=== PATIENT | male | born 1940 | race Caucasian/White ===

== ENCOUNTER → 2016-12-30 | Outpatient (CLI) | payer MEDICARE, OTHER ==
[2016-12-30 10:41] LABS: Basophils % (A) 1 %; CH 29.7; CHCM 32.5; Eosinophils # (A) 0.1 k/uL (0-0.7); Eosinophils % (A) 2 %; HCT 51.2 % (39.0-53.0); HDW 2.24; HGB 16.2 gm/dL (13.0-17.5); Luc # (Auto) 0.13; Luc % (Auto) 2; Lymphocytes # (A) 1.2 k/uL (1.0-4.8); Lymphocytes % (A) 22 %; MCHC 31.6 g/dL (31.0-37.0); MCV 91.8 fL (80.0-100.0); Mean Platelet Volume 8.1; Monocytes # (A) 0.4 k/uL (0-1.0); Monocytes % (A) 7 %; Neutrophils # (A) 3.8 k/uL (1.3-7.7); Neutrophils % (A) 66 %; RBC 5.58 m/uL (4.30-5.90); RDW 13.2 % (11.5-15.5); WBC 5.8 k/uL (3.8-10.6); WBC (Perox) 5.57
[2016-12-30 11:04] LABS: ALT 33 U/L (21-72); AST 29 U/L (17-59); Alkaline Phosphatase 96 U/L (38-126); Anion Gap 12 mmol/L; Blood Urea Nitrogen 18 mg/dL (9-20); Calcium 9.7 mg/dL (8.4-10.2); Carbon Dioxide 28 mmol/L (22-30); Chloride 104 mmol/L (98-107); Cholesterol 261 mg/dL (<200); Glucose 104 mg/dL (74-99); HDL Cholesterol 57 mg/dL (40-60); Non-African American GFR(MDRD) 50 (>60 ml/min/1.73 sqM); Potassium 4.6 mmol/L (3.5-5.1); Sodium 144 mmol/L (137-145); Total Bilirubin 0.8 mg/dL (0.2-1.3); Total Protein 7.7 g/dL (6.3-8.2); Triglycerides 111 mg/dL (<150)
[2016-12-30 12:25] LABS: Hemoglobin A1C 5.5 % (4.2-6.1)
== END | disposition home or self-care (01) ==
LOC: EEVIPCON 09:45 → LABWHC1 09:45
PROVIDERS: ATTEND Nurse Practitioner Psychiatric/Mental Health
DX: F20.9 Schizophrenia, unspecified (principal)
CPT/HCPCS: 36415; 80053; 80061; 83036; 84439; 84443; 85025

== ENCOUNTER 2019-08-05 17:29 | Inpatient (IN) | payer MEDICARE, OTHER ==
[2019-08-05] MEDS ORDERED: methylPREDNISolone SOD SUCCI 125 MG/2 ML VIAL IV STA (18:12)
[2019-08-05] MEDS ORDERED: SODIUM CHLORIDE 0.9% 1,000 ML IV STA (18:12)
[2019-08-05] MEDS ORDERED: ALBUTEROL NEBULIZED 2.5 MG/3 ML INHALATION STA (18:12)
--- NOTE | 2019-08-05 18:32 | ED ---
General Adult HPI - General Chief complaint: Shortness of Breath Stated complaint: low SpO2 Time Seen by Provider: 08/05/19 17:57 Source: patient, RN notes reviewed Mode of arrival: EMS Limitations: no limitations - History of Present Illness Initial comments: Chief complaint history of present illness this is an 79-year-old male who reportedly was discharged from her disc hospitalist morning. Sent home to a adult foster care type home who felt he was still too sick to keep at the home. Ambulance was called he is brought emergency room. Pulse ox 92% on room air. the history gained from the notes from [facility] , the patient has COPD with schizophrenia, reportedly not eating or drinking for 3 days. The patient is currently denying pain or being short of breath though he does appear to be short of breath. He does emergency room tachycardic rate 126. Respiratory rate 20 pulse ox 90% room air. The patient had nasal O2 started. Also updra ordered labs and EKG. A call was sent out to the guardians phone number, his cell phone, and a message left. The guardians name is Kevin Kendrick Medical records will be requested from [facility]. - Related Data Allergies Allergy/AdvReac Type Severity Reaction Status Date / Time Penicillins Allergy Unknown Verified 08/05/19 19:14 Tetanus Vaccines and Toxoid Allergy Unknown Verified 08/05/19 19:14 Review of Systems ROS Statement: Those systems with pertinent positive or pertinent negative responses have been documented in the HPI. Review of systems; patient denies shortness of breath or any pain. Past history significant for COPD and schizophrenia. Currently no information is available on the patient. He was discharged from [facility] this morning. Notes from [facility] over requested. ROS Other: All systems not noted in ROS Statement are negative. Past Medical History Past Medical History: Heart Failure, COPD, Dementia Additional Past Medical History / Comment(s): schizophrenia History of Any Multi-Drug Resistant Organisms: Unobtainable Past Surgical History: Unable to Obtain Smoking Status: Unknown if ever smoked Past Alcohol Use History: Unable to Obtain Past Drug Use History: Unable to Obtain General Exam - General Exam Comments Initial Comments: General: The patient is awake and appears to be short of breath though he denies it. Vital signs temperature 98.2 pulse 126 respiratory rate 20 pulse ox 92% room air blood pressure 150/90 Eye: Pupils are equal, round and reactive to light, extra-ocular movements are intact; there is normal conjunctiva bilaterally. No signs of icterus. Ears, nose, mouth and throat: Dry mucous membranes Neck: The neck is supple, denying neck pain Cardiovascular: Tachycardic heart rate, no murmur appreciated this time Respiratory: Appears short of breath, dried phlegm in his throat, crepitant rales right base, patient receiving Ventimask at this time and actually stating he does not feel short of breath. Gastrointestinal: Denying abdominal pain denying nausea vomiting or diarrhea Back: There is no tenderness to palpation in the midline. There is no obvious deformity. No rashes noted. Denying back pain Musculoskeletal: Normal ROM, no tenderness, There is no pedal edema. There is no calf tenderness or swelling. Sensation intact. Pulses equal bilaterally 2+. Neurological: No gross neuro deficits. Patient moving upper and lower extremities. Skin: Skin is warm and dry and no rashes or lesions are noted. Psychiatric: History of schizophrenia. Limitations: no limitations Course Vital Signs 08/05/19 08/05/19 08/05/19 17:36 18:16 18:25 Temperature 98.2 F Pulse Rate 126 H 132 H Respiratory 20 18 Rate Blood Pressure 150/90 O2 Sat by Pulse 92 L Oximetry 08/05/19 08/05/19 08/05/19 18:47 19:38 21:09 Temperature 97.6 F Pulse Rate 132 H 134 H 98 Respiratory 37 H 41 H Rate Blood Pressure 112/89 108/75 O2 Sat by Pulse 99 96 Oximetry 08/05/19 21:23 Temperature Pulse Rate Respiratory 40 H Rate Blood Pressure O2 Sat by Pulse Oximetry Medical Decision Making - Medical Decision Making Rectal decision making; was an 79-year-old male who was at [facility] for several days and discharge this morning. After he returned to the adult foster detention. The patient was too dyspneic to stay there. He was brought here by and illness. The patient has COPD. Was advised on discharge from her [facility] the patient be on O2 at home as well as bronchodilators. Unknown if this was organized to arrange. Emergency room the patient was quite dyspneic. He was given an updraft and started on BiPAP with significant improvement. The patient was tachycardic upon arrival remained so. He will have a fluid challenge. Labs show white count 4.8 hemoglobin 18 hematocrit 56 possible hemoconcentration. Potassium 3.9, BUN of 52 creatinine 1.5 GFR 44. Troponin elevated at 0.051. BNP 1560 which reviewed within normal limits for his age. Chest x-ray was done and reviewed by radiologist and her impression is her cardiac mediastinal silhouette is within normal limits. Aortic vascular calcifications. Streak-like opacities favor atelectasis. Superimposed right lower lung groundglass airspace opacities is nonspecific. Limited evaluation for pneumothorax portable and presumed supine technique. Osseous structures are intact. Impression; bilateral subsegmental atelectasis. Superimposed groundglass right mid and lower lung airspace opacity may also represent areas of atelectasis however possibility of superimposed infectious consolidation is not excluded. As read by The patient was asked multiple times if will allow us to intubate him because of his worsening respiratory status. He stated no. He stated no and front of his nurse Dominique. We called his guardian and spoke to him. He stated that the patient is a no code and does not want him intubated under the circumstances. He said the patient would not want to be intubated, which is what the patient said to us here in the emergency room. I discussed the case with the nurse practitioner on-call for Dr. cedeño. Patient be admitted Dr. cedeño. I spoke with the ICU doctor Dr. Hartman , processing assistant, who will consult on the patient. He recommends that the patient is admitted to a monitored bed but not the ICU at this time. - Lab Data Result diagrams: 08/05/19 18:30 08/05/19 18:30 Lab Results 08/05/19 08/05/19 08/05/19 Range/Units 18:30 18:30 18:30 WBC 4.8 (3.8-10.6) k/uL RBC 6.30 H (4.30-5.90) m/uL Hgb 18.5 H (13.0-17.5) gm/dL Hct 56.0 H (39.0-53.0) % MCV 88.9 (80.0-100.0) fL MCH 29.3 (25.0-35.0) pg MCHC 33.0 (31.0-37.0) g/dL RDW 15.9 H (11.5-15.5) % Plt Count 130 L (150-450) k/uL Neutrophils % (Manual) 66 % Band Neutrophils % 16 % Lymphocytes % (Manual) 9 % Monocytes % (Manual) 7 % Metamyelocytes % 4 % Neutrophils # (Manual) 3.90 (1.3-7.7) k/uL Lymphocytes # (Manual) 0.43 L (1.0-4.8) k/uL Monocytes # (Manual) 0.34 (0-1.0) k/uL Metamyelocytes # (Man) 0.19 H (0) k/uL Nucleated RBCs 0 (0-0) /100 WBC PT 10.3 (9.0-12.0) sec INR 1.0 (<1.2) APTT 21.3 L (22.0-30.0) sec Sodium 144 (137-145) mmol/L Potassium 3.9 (3.5-5.1) mmol/L Chloride 102 (98-107) mmol/L Carbon Dioxide 26 (22-30) mmol/L Anion Gap 16 mmol/L BUN 52 H (9-20) mg/dL Creatinine 1.50 H (0.66-1.25) mg/dL Est GFR (CKD-EPI)AfAm 50 (>60 ml/min/1.73 sqM) Est GFR (CKD-EPI)NonAf 44 (>60 ml/min/1.73 sqM) Glucose 168 H (74-99) mg/dL Calcium 10.3 H (8.4-10.2) mg/dL Total Bilirubin 1.3 (0.2-1.3) mg/dL AST 45 (17-59) U/L ALT 32 (21-72) U/L Alkaline Phosphatase 112 (38-126) U/L Troponin I (0.000-0.034) ng/mL NT-Pro-B Natriuret Pep pg/mL Total Protein 7.7 (6.3-8.2) g/dL Albumin 4.2 (3.5-5.0) g/dL 08/05/19 08/05/19 Range/Units 18:30 18:30 WBC (3.8-10.6) k/uL RBC (4.30-5.90) m/uL Hgb (13.0-17.5) gm/dL Hct (39.0-53.0) % MCV (80.0-100.0) fL MCH (25.0-35.0) pg MCHC (31.0-37.0) g/dL RDW (11.5-15.5) % Plt Count (150-450) k/uL Neutrophils % (Manual) % Band Neutrophils % % Lymphocytes % (Manual) % Monocytes % (Manual) % Metamyelocytes % % Neutrophils # (Manual) (1.3-7.7) k/uL Lymphocytes # (Manual) (1.0-4.8) k/uL Monocytes # (Manual) (0-1.0) k/uL Metamyelocytes # (Man) (0) k/uL Nucleated RBCs (0-0) /100 WBC PT (9.0-12.0) sec INR (<1.2) APTT (22.0-30.0) sec Sodium (137-145) mmol/L Potassium (3.5-5.1) mmol/L Chloride (98-107) mmol/L Carbon Dioxide (22-30) mmol/L Anion Gap mmol/L BUN (9-20) mg/dL Creatinine (0.66-1.25) mg/dL Est GFR (CKD-EPI)AfAm (>60 ml/min/1.73 sqM) Est GFR (CKD-EPI)NonAf (>60 ml/min/1.73 sqM) Glucose (74-99) mg/dL Calcium (8.4-10.2) mg/dL Total Bilirubin (0.2-1.3) mg/dL AST (17-59) U/L ALT (21-72) U/L Alkaline Phosphatase (38-126) U/L Troponin I 0.051 H* (0.000-0.034) ng/mL NT-Pro-B Natriuret Pep 1560 pg/mL Total Protein (6.3-8.2) g/dL Albumin (3.5-5.0) g/dL Disposition Clinical Impression: Acute exacerbation of chronic obstructive pulmonary disease (COPD), Respiratory failure Disposition: ADMITTED IP TO THIS HOSP Condition: Serious Is patient prescribed a controlled substance at d/c from ED?: No Referrals: Nuria Bella MD [Primary Care Provider] - 1-2 days
[2019-08-05 19:00] LABS: Albumin 4.2 g/dL (3.5-5.0); Calcium 10.3 mg/dL (8.4-10.2); Potassium 3.9 mmol/L (3.5-5.1); Total Bilirubin 1.3 mg/dL (0.2-1.3); Total Protein 7.7 g/dL (6.3-8.2)
[2019-08-05 19:01] LABS: Partial Thromboplastin Time 21.3 sec (22.0-30.0); Prothrombin Time 10.3 sec (9.0-12.0)
[2019-08-05 19:16] LABS: HGB 18.5 gm/dL (13.0-17.5); MCH 29.3 pg (25.0-35.0); MCV 88.9 fL (80.0-100.0); Mean Platelet Volume 8.9; Platelet Count 130 k/uL (150-450); RDW 15.9 % (11.5-15.5); WBC 4.8 k/uL (3.8-10.6)
[2019-08-05 20:00] LABS: Band Neutrophils % 16 %; Lymphocytes # (M) 0.43 k/uL (1.0-4.8); Metamyelocytes # (M) 0.19 k/uL (0); Metamyelocytes % 4 %; Monocytes # (M) 0.34 k/uL (0-1.0); Neutrophils % (M) 66 %; Nucleated Red Blood Cells 0 /100 WBC (0-0); Total Cells Counted 200
[2019-08-05] MEDS ORDERED: SODIUM CHLORIDE 0.9% 500 ML 500 ML IV ONE (20:07)
--- NOTE | 2019-08-05 20:28 | XR ---
EXAMINATION TYPE: XR chest 1V portable DATE OF EXAM: 08/05/2019 COMPARISON: NONE HISTORY: COPD exacerbation TECHNIQUE: Single frontal view of the chest is obtained. FINDINGS: Cardiac mediastinal silhouette is within normal limits. Aortic vascular calcifications. Streak-like o pacities favor atelectasis. Superimposed right lower lung groundglass airspace opacities is nonspecif ic. Limited evaluation for pneumothorax portable and presumed supine technique. Osseous structures ar e intact. IMPRESSION: Bilateral subsegmental atelectasis. Superimposed ground glass right mid and lower lung airspace opaci ty may also represent areas of atelectasis however the possibility of superimposed infectious consoli dation is not excluded.
[2019-08-05] MEDS ORDERED: NALOXONE 0.4 MG/ML 1 ML VIAL IV PRN (21:40)
[2019-08-05] MEDS: LORazepam 2 MG/ML INJ IV PRN (23:13)
[2019-08-05] MEDS: SODIUM CHLORIDE 0.9% 1,000 ML IV SCH (23:13)
[2019-08-06] MEDS: HEPARIN SODIUM,PORCINE 5,000 UNIT/ML 1 ML VIAL SQ SCH ×3 (00:48→14:44)
[2019-08-06] MEDS: methylPREDNISolone SOD SUCCI 125 MG/2 ML VIAL IV SCH ×5 (00:49→23:01)
[2019-08-06] MEDS: LORazepam 2 MG/ML INJ IV PRN (06:02)
[2019-08-06 08:09] LABS: Calcium 9.2 mg/dL (8.4-10.2); Potassium 3.2 mmol/L (3.5-5.1)
[2019-08-06 08:44] LABS: Basophils # (A) 0.1 k/uL (0-0.2); Basophils % (A) 1 %; Eosinophils % (A) 1 %; HCT 48.6 % (39.0-53.0); Lymphocytes # (A) 0.2 k/uL (1.0-4.8); Lymphocytes % (A) 2 %; MCH 29.1 pg (25.0-35.0); MCHC 32.9 g/dL (31.0-37.0); MCV 88.4 fL (80.0-100.0); Mean Platelet Volume 10.2; Monocytes # (A) 0.6 k/uL (0-1.0); Monocytes % (A) 7 %; Neutrophils # (A) 8.1 k/uL (1.3-7.7); Neutrophils % (A) 89 %; RBC 5.49 m/uL (4.30-5.90); RDW 14.8 % (11.5-15.5); WBC 9.1 k/uL (3.8-10.6)
[2019-08-06 09:02] LABS: Platelet Count 89 k/uL (150-450); Poikilocytosis (M) Present
[2019-08-06 09:07] LABS: Appearance,Urine Cloudy (Clear); Bilirubin,Urine 1+ (Negative); Blood,Urine Moderate (Negative); Color,Urine Dark Brown; Glucose,Urine (UA) Negative (Negative); Granular Casts,Urine 4 /lpf (0); Hyaline Casts,Urine 3 /lpf (0-2); Ketones,Urine Negative (Negative); Leukocyte Esterase,Urine Negative (Negative); Mucus,Urine Rare /hpf; Nitrite,Urine Negative (Negative); PH, Urine 5.5 (5.0-8.0); Protein,Urine 2+ (Negative); RBC,Urine 1 /hpf (0-5); Specific Gravity,Urine 1.031 (1.001-1.035); Squamous Epithelial Cell,Urine <1 /hpf (0-4); WBC,Urine 1 /hpf (0-5)
[2019-08-06 10:46] LABS: ABG Base Excess 1.9 mmol/L; ABG HCO3 25 mmol/L (21-25); ABG Oxygen Saturation 93.3 % (94-97); ABG PCO2 34 mmHg (35-45); ABG PH 7.49 (7.35-7.45); ABG PO2 65 mmHg (83-108); ABG TCO2 26 mmol/L (19-24); Allen Test Performed? Yes
[2019-08-06] MEDS ORDERED: SODIUM CHLORIDE 0.9% 500 ML 250 ML IV ONE (10:51)
[2019-08-06] MEDS ORDERED: SODIUM CHLORIDE 0.9% 500 ML 500 ML IV ONE (10:58)
--- NOTE | 2019-08-06 11:19 | P.HPIM ---
History of Present Illness This is a pleasant 79 years old male with past medical history of heart failure, COPD, dementia, schizophrenia. He presents because of dyspnea. Patient is poor historian and he is on BiPAP now and has difficulty given information however he has chest pain. Patient looks tachycardic with heart rate of 120 to 130, breathing rate is 32, blood pressure 110/75. He is saturating 92% on BiPAP with FiO2 of 60%. Labs reviewed showing worsening WBC from 4.8 up to 9.1K, platelet count 89. Hemoglobin 16. Troponin is elevated at 0.05 and 0.08, creatinine is elevated at 2.0, baseline is 1.2-1.3. Sodium 146. EKG showing sinus tachycardia at 140 with QTC of 540. Chest x-ray showing bilateral atelectasis however cannot exclude pneumonia. Patient was started on Solu-Medrol in the emergency room. Also he is on normal saline and 18 mL/h. He has decreased urine output, confirmed with the staff. We going to give him a bolus of 500 mL and follow-up creatinine level Review of Systems CONSTITUTIONAL: No fever, no malaise, no fatigue. HEENT: No recent visual problems or hearing problems. Denied any sore throat. CARDIOVASCULAR: No orthopnea, PND, no palpitations, no syncope. PULMONARY: No shortness of breath, no cough, no hemoptysis. GASTROINTESTINAL: No diarrhea, no nausea, no vomiting, no abdominal pain. Normoactive bowel sounds. NEUROLOGICAL: No headaches, no weakness, no numbness. HEMATOLOGICAL: Denies any bleeding or petechiae. GENITOURINARY: Denies any burning micturition, frequency, or urgency. MUSCULOSKELETAL/RHEUMATOLOGICAL: Denies any joint pain, swelling, or any muscle pain. ENDOCRINE: Denies any polyuria or polydipsia. Past Medical History Past Medical History: Heart Failure, COPD, Dementia Additional Past Medical History / Comment(s): schizophrenia History of Any Multi-Drug Resistant Organisms: Unobtainable Past Surgical History: Unable to Obtain Past Anesthesia/Blood Transfusion Reactions: No Reported Reaction Past Psychological History: Schizophrenia Additional Psychological History / Comment(s): Pt is usually quite, keeps to himself. Smoking Status: Unknown if ever smoked Past Alcohol Use History: Unable to Obtain Additional Past Alcohol Use History / Comment(s): No record from [facility] at facility Past Drug Use History: Unable to Obtain - Past Family History Father Family Medical History: Unable to Obtain Mother Family Medical History: Unable to Obtain Medications and Allergies Home Medications Medication Instructions Recorded Confirmed Type Ipratropium Nebulized [Atrovent 0.5 mg INHALATION TID 08/06/19 08/06/19 History Nebulized 0.2 MG/ML] Paliperidone [Invega] 08/06/19 History predniSONE 0 mg PO DIRECTED 08/06/19 08/06/19 History Allergies Allergy/AdvReac Type Severity Reaction Status Date / Time ceftriaxone [From Rocephin] Allergy Unknown Verified 08/06/19 06:47 Penicillins Allergy Unknown Verified 08/05/19 19:14 Tetanus Vaccines and Toxoid Allergy Unknown Verified 08/05/19 19:14 Physical Exam Vitals: Vital Signs Temp Pulse Pulse Resp BP BP Pulse Ox 08/06/19 08:00 97.6 F 130 H 32 H 110/75 92 L 08/06/19 05:50 98.6 F 120 H 24 136/84 97 08/06/19 04:15 97.7 F 116 H 23 137/80 97 08/06/19 04:00 97 08/06/19 03:22 97.9 F 133 H 21 106/78 96 08/06/19 01:49 126 H 23 135/95 93 L 08/06/19 00:50 129 H 30 H 118/86 98 08/05/19 23:46 121/93 08/05/19 23:42 97.7 F 135 H 30 H 143/91 100 08/05/19 22:30 40 H 08/05/19 21:23 40 H 08/05/19 21:09 98 41 H 108/75 96 08/05/19 19:38 97.6 F 134 H 37 H 112/89 99 08/05/19 18:47 132 H 08/05/19 18:25 132 H 08/05/19 18:16 18 08/05/19 17:36 98.2 F 126 H 20 150/90 92 L Intake and Output 08/05/19 08/06/19 08/06/19 22:59 06:59 14:59 Output Total 200 Balance -200 Output: Urine 200 Straight 200 Other: Voiding Method Diaper Weight 71.668 kg 60.5 kg GENERAL: The patient is alert and oriented x3, not in any acute distress. Well d eveloped, well nourished. HEENT: Pupils are round and equally reacting to light. EOMI. No scleral icterus. No conjunctival pallor. Normocephalic, atraumatic. No pharyngeal erythema. No thyromegaly. CARDIOVASCULAR: S1 and S2 present. No murmurs, rubs, or gallops. PULMONARY: Chest is clear to auscultation, no wheezing or crackles. ABDOMEN: Soft, nontender, nondistended, normoactive bowel sounds. No palpable organomegaly. MUSCULOSKELETAL: No joint swelling or deformity. EXTREMITIES: No cyanosis, clubbing, or pedal edema. NEUROLOGICAL: Gross neurological examination did not reveal any focal deficits. SKIN: No rashes. Results CBC & Chem 7: 08/06/19 06:36 08/06/19 07:06 Labs: Abnormal Lab Results - Last 24 Hours (Table) 08/05/19 08/05/19 08/05/19 Range/Units 18:30 18:30 18:30 RBC 6.30 H (4.30-5.90) m/uL Hgb 18.5 H (13.0-17.5) gm/dL Hct 56.0 H (39.0-53.0) % RDW 15.9 H (11.5-15.5) % Plt Count 130 L (150-450) k/uL Neutrophils # (1.3-7.7) k/uL Lymphocytes # (1.0-4.8) k/uL Lymphocytes # (Manual) 0.43 L (1.0-4.8) k/uL Metamyelocytes # (Man) 0.19 H (0) k/uL APTT 21.3 L (22.0-30.0) sec Sodium (137-145) mmol/L Potassium (3.5-5.1) mmol/L Chloride (98-107) mmol/L BUN 52 H (9-20) mg/dL Creatinine 1.50 H (0.66-1.25) mg/dL Glucose 168 H (74-99) mg/dL Calcium 10.3 H (8.4-10.2) mg/dL Troponin I (0.000-0.034) ng/mL Urine Protein (Negative) Urine Blood (Negative) Urine Bilirubin (Negative) Hyaline Casts (0-2) /lpf Urine Mucus (None) /hpf 08/05/19 08/06/19 08/06/19 Range/Units 18:30 01:15 06:36 RBC (4.30-5.90) m/uL Hgb (13.0-17.5) gm/dL Hct (39.0-53.0) % RDW (11.5-15.5) % Plt Count 89 L (150-450) k/uL Neutrophils # 8.1 H (1.3-7.7) k/uL Lymphocytes # 0.2 L (1.0-4.8) k/uL Lymphocytes # (Manual) (1.0-4.8) k/uL Metamyelocytes # (Man) (0) k/uL APTT (22.0-30.0) sec Sodium (137-145) mmol/L Potassium (3.5-5.1) mmol/L Chloride (98-107) mmol/L BUN (9-20) mg/dL Creatinine (0.66-1.25) mg/dL Glucose (74-99) mg/dL Calcium (8.4-10.2) mg/dL Troponin I 0.051 H* 0.083 H* (0.000-0.034) ng/mL Urine Protein (Negative) Urine Blood (Negative) Urine Bilirubin (Negative) Hyaline Casts (0-2) /lpf Urine Mucus (None) /hpf 08/06/19 08/06/19 08/06/19 Range/Units 07:06 07:06 08:31 RBC (4.30-5.90) m/uL Hgb (13.0-17.5) gm/dL Hct (39.0-53.0) % RDW (11.5-15.5) % Plt Count (150-450) k/uL Neutrophils # (1.3-7.7) k/uL Lymphocytes # (1.0-4.8) k/uL Lymphocytes # (Manual) (1.0-4.8) k/uL Metamyelocytes # (Man) (0) k/uL APTT (22.0-30.0) sec Sodium 146 H (137-145) mmol/L Potassium 3.2 L (3.5-5.1) mmol/L Chloride 108 H (98-107) mmol/L BUN 71 H (9-20) mg/dL Creatinine 2.00 H (0.66-1.25) mg/dL Glucose 215 H (74-99) mg/dL Calcium (8.4-10.2) mg/dL Troponin I 0.082 H* (0.000-0.034) ng/mL Urine Protein 2+ H (Negative) Urine Blood Moderate H (Negative) Urine Bilirubin 1+ H (Negative) Hyaline Casts 3 H (0-2) /lpf Urine Mucus Rare H (None) /hpf Thrombosis Risk Factor Assmnt - Choose All That Apply Each Risk Factor Represents 3 Points: Age 75 years or older Thrombosis Risk Factor Assessment Total Risk Factor Score: 3 Thrombosis Risk Factor Assessment Level: Moderate Risk Assessment and Plan Assessment: Acute COPD exacerbation Acute hypoxemic respiratory failure Elevated troponin Acute kidney injury versus chronic kidney disease stage III. Mostly prerenal. Chronic congestive heart failure Dementia Schizophrenia thrombocytopenia Plan: This is a pleasant 79 years old male who presents with acute COPD exacerbation. Continue with steroids, bronchodilators, oxygen. continue with antibiotics. Call pulmonary consult. call cardiology consult . Continue with IV fluid. Check for influenza and sent sputum culture Labs and medication were reviewed.. Continue same treatment. Continue with symptomatic treatment. Resume home medication. Monitor lytes and vitals. DVT and GI prophylaxis. Further recommendations of the clinical course of the patient DVT prophylaxis: Subcutaneous heparin GI Prophylaxis: Pepcid PT/OT: Pending Prognosis is guarded
[2019-08-06] MEDS: IPRATROPIUM-ALBUTEROL 3 ML NEB INHALATION SCH ×4 (11:25→23:59)
[2019-08-06 11:50] VITALS: BMI 17.1
[2019-08-06] MEDS ORDERED: FAMOTIDINE 20 MG TAB PO SCH (12:00)
[2019-08-06] MEDS: SODIUM CHLORIDE 0.9% 1,000 ML IV SCH (12:00)
--- NOTE | 2019-08-06 14:28 | P.CNPUL ---
History of Present Illness Consult date: 08/06/19 Requesting physician: Glenn Franco Reason for consult: dyspnea Chief complaint: Shortness of breath History of present illness: This is an 79-year-old gentleman who follows with Dr. Bella as his primary care physician. He has a history of chronic obstructive pulmonary disease, congestive heart failure, dementia. He was recently released from [facility] to his adult foster halfway where they felt he was too sick to stay there and he was brought here to the emergency room yesterday. Chest x- ray revealed bilateral subsegmental atelectasis with superimposed groundglass r ight mid and lower lung airspace opacities. He was in significant respiratory distress but was refusing intubation in the emergency room. His legal guardian was contacted and he was made a DO NOT RESUSCITATE/DO NOT INTUBATE CODE STATUS. He was then placed on BiPAP and admitted to the selective care unit. He is seen there today in consultation. He is mainly nonverbal. Not answering any questi ons. He has been mainly BiPAP dependent since arrival. He is currently on 60% FiO2 at settings 14/7. Arterial blood gases revealed a PaO2 of 65, pCO2 34, pH 7.49. He is tachypneic in the 30s. He is tachycardic in the 130s. White count 9.1. Hemoglobin 16.0. Sodium 146. Potassium 3.2. BUN 71. Creatinine 2.0. Lactic acid 3.7. Troponin 0.082. He has been initiated on DuoNeb inhalations, IV Solu-Medrol. Review of Systems ROS unobtainable: due to mental status Past Medical History Past Medical History: Heart Failure, COPD, Dementia Additional Past Medical History / Comment(s): schizophrenia History of Any Multi-Drug Resistant Organisms: Unobtainable Past Surgical History: Unable to Obtain Past Anesthesia/Blood Transfusion Reactions: No Reported Reaction Past Psychological History: Schizophrenia Additional Psychological History / Comment(s): Pt is usually quite, keeps to himself. Smoking Status: Unknown if ever smoked Past Alcohol Use History: Unable to Obtain Additional Past Alcohol Use History / Comment(s): No record from [facility] at facility Past Drug Use History: Unable to Obtain - Past Family History Father Family Medical History: Unable to Obtain Additional Family Medical History / Comment(s): Patient is currently nonverbal Mother Family Medical History: Unable to Obtain Medications and Allergies Home Medications Medication Instructions Recorded Confirmed Type Ipratropium Nebulized [Atrovent 0.5 mg INHALATION TID 08/06/19 08/06/19 History Nebulized 0.2 MG/ML] Paliperidone [Invega] 08/06/19 History predniSONE 0 mg PO DIRECTED 08/06/19 08/06/19 History Allergies Allergy/AdvReac Type Severity Reaction Status Date / Time ceftriaxone [From [facility]] Allergy Unknown Verified 08/06/19 06:47 Penicillins Allergy Unknown Verified 08/05/19 19:14 Tetanus Vaccines and Toxoid Allergy Unknown Verified 08/05/19 19:14 Physical Exam Vitals: Vital Signs Temp Pulse Pulse Resp BP BP Pulse Ox 08/06/19 11:35 116 H 29 H 08/06/19 11:25 118 H 28 H 08/06/19 08:00 97.6 F 130 H 32 H 110/75 92 L 08/06/19 05:50 98.6 F 120 H 24 136/84 97 08/06/19 04:15 97.7 F 116 H 23 137/80 97 08/06/19 04:00 97 08/06/19 03:22 97.9 F 133 H 21 106/78 96 08/06/19 01:49 126 H 23 135/95 93 L 08/06/19 00:50 129 H 30 H 118/86 98 08/05/19 23:46 121/93 08/05/19 23:42 97.7 F 135 H 30 H 143/91 100 08/05/19 22:30 40 H 08/05/19 21:23 40 H 08/05/19 21:09 98 41 H 108/75 96 08/05/19 19:38 97.6 F 134 H 37 H 112/89 99 08/05/19 18:47 132 H 08/05/19 18:25 132 H 08/05/19 18:16 18 08/05/19 17:36 98.2 F 126 H 20 150/90 92 L Intake and Output 08/05/19 08/06/19 08/06/19 22:59 06:59 14:59 Output Total 200 Balance -200 Output: Urine 200 Straight 200 Other: Voiding Method Diaper Weight 71.668 kg 60.5 kg 60.5 kg GENERAL EXAM: Frail, cachectic 79-year-old gentleman. Nonverbal. On BiPAP with FiO2 60% maintain O2 saturations at 92%. HEAD: Normocephalic. EYES: Normal reaction of pupils, equal size. NOSE: Clear with pink turbinates. THROAT: No erythema or exudates. NECK: No masses, no JVD. CHEST: No chest wall deformity. LUNGS: Equal air entry with scattered rhonchi crackles in the bases, diminished CVS: S1 and S2 normal with no audible murmur, regular rhythm. ABDOMEN: No hepatosplenomegaly, normal bowel sounds, no guarding or rigidity. SPINE: No scoliosis or deformity SKIN: No rashes CENTRAL NERVOUS SYSTEM: No focal deficits, tone is normal in all 4 extremities. EXTREMITIES: There is no peripheral edema. No clubbing, no cyanosis. Periphera l pulses are intact. Results - Laboratory Findings CBC and BMP: 08/06/19 06:36 08/06/19 07:06 ABG ABG pH 7.49 (7.35-7.45) H 08/06/19 10:41 ABG pCO2 34 mmHg (35-45) L 08/06/19 10:41 ABG pO2 65 mmHg (83-108) L 08/06/19 10:41 ABG O2 Saturation 93.3 % (94-97) L 08/06/19 10:41 PT/INR, D-dimer PT 10.3 sec (9.0-12.0) 08/05/19 18:30 INR 1.0 (<1.2) 08/05/19 18:30 Abnormal lab findings: Abnormal Labs 08/05/19 08/05/19 08/05/19 18:30 18:30 18:30 RBC 6.30 H Hgb 18.5 H Hct 56.0 H RDW 15.9 H Plt Count 130 L Neutrophils # Lymphocytes # Lymphocytes # (Manual) 0.43 L Metamyelocytes # (Man) 0.19 H APTT 21.3 L ABG pH ABG pCO2 ABG pO2 ABG Total CO2 ABG O2 Saturation Sodium Potassium Chloride BUN 52 H Creatinine 1.50 H Glucose 168 H Plasma Lactic Acid Calos Calcium 10.3 H Troponin I Urine Protein Urine Blood Urine Bilirubin Hyaline Casts Urine Mucus 09/13/19 09/14/19 09/14/19 18:30 01:15 06:36 RBC Hgb Hct RDW Plt Count 89 L Neutrophils # 8.1 H Lymphocytes # 0.2 L Lymphocytes # (Manual) Metamyelocytes # (Man) APTT ABG pH ABG pCO2 ABG pO2 ABG Total CO2 ABG O2 Saturation Sodium Potassium Chloride BUN Creatinine Glucose Plasma Lactic Acid Calos Calcium Troponin I 0.051 H* 0.083 H* Urine Protein Urine Blood Urine Bilirubin Hyaline Casts Urine Mucus 08/06/19 08/06/19 08/06/19 07:06 07:06 08:31 RBC Hgb Hct RDW Plt Count Neutrophils # Lymphocytes # Lymphocytes # (Manual) Metamyelocytes # (Man) APTT ABG pH ABG pCO2 ABG pO2 ABG Total CO2 ABG O2 Saturation Sodium 146 H Potassium 3.2 L Chloride 108 H BUN 71 H Creatinine 2.00 H Glucose 215 H Plasma Lactic Acid Calos Calcium Troponin I 0.082 H* Urine Protein 2+ H Urine Blood Moderate H Urine Bilirubin 1+ H Hyaline Casts 3 H Urine Mucus Rare H 08/06/19 08/06/19 09:48 10:41 RBC Hgb Hct RDW Plt Count Neutrophils # Lymphocytes # Lymphocytes # (Manual) Metamyelocytes # (Man) APTT ABG pH 7.49 H ABG pCO2 34 L ABG pO2 65 L ABG Total CO2 26 H ABG O2 Saturation 93.3 L Sodium Potassium Chloride BUN Creatinine Glucose Plasma Lactic Acid Calos 3.7 H* Calcium Troponin I Urine Protein Urine Blood Urine Bilirubin Hyaline Casts Urine Mucus - Diagnostic Findings Chest x-ray: image reviewed Assessment and Plan Assessment: Impression: #1 Acute hypoxic respiratory failure secondary to bilateral subsegmental atelectasis with lower lung airspace opacities possible healthcare acquired pneumonia and an acute exacerbation of chronic obstructive pulmonary disease. #2 Recent admission to outside facility. #3 schizophrenia. #4 Dementia. #5 History of heart failure. Plan: The patient was seen and evaluated by Dr. Hartman. Chest x-ray and labs reviewed. The patient is a DO NOT RESUSCITATE/DO NOT INTUBATE CODE STATUS. He may even benefit from hospice/comfort care. In the interim, we'll continue with full supportive care. Continue antibiotics, bronchodilators, steroids. Heparin for DVT prophylaxis. Pepcid for GI prophylaxis. We'll continue to follow and make further recommendations based on his clinical status. I, the cosigning physician, performed a history & physical examination of the patient. Lungs sounds bilateral scattered rhonchi, crackles in posterior bases, diminished. Maintaining good O2 saturations in the 90s on 60% FiO2 via BiPAP. I discussed the assessment and plan of care with my nurse practitioner, Amy Love. I attest to the above note as dictated by her. Time with Patient: Greater than 30
[2019-08-06] MEDS ORDERED: Potassium Replacement Protocol 1 EACH MISC MISCELLANE PRN (14:44)
[2019-08-06] MEDS: POTASSIUM CHLORIDE 10 MEQ in WATER FOR INJECTION 1 100ML.BAG IVPB SCH ×4 (15:29→19:14)
[2019-08-06] MEDS: AZITHROMYCIN 500 MG in SODIUM CHLORIDE 0.9% 250 ML IVPB SCH (15:30)
[2019-08-06] MEDS: FAMOTIDINE 20 MG/2 ML VIAL IV SCH (16:38)
[2019-08-06] MEDS ORDERED: FAMOTIDINE 20 MG/2 ML VIAL IV SCH (21:00)
[2019-08-06] MEDS ORDERED: cloNIDine 0.1 MG/24HR PATCH TRANSDERM SCH (22:15)
[2019-08-07] MEDS: HEPARIN SODIUM,PORCINE 5,000 UNIT/ML 1 ML VIAL SQ SCH ×3 (00:31→15:36)
[2019-08-07] MEDS: IPRATROPIUM-ALBUTEROL 3 ML NEB INHALATION SCH ×6 (03:36→23:47)
[2019-08-07] MEDS: SODIUM CHLORIDE 0.9% 1,000 ML IV SCH ×2 (05:59→13:11)
[2019-08-07] MEDS: methylPREDNISolone SOD SUCCI 125 MG/2 ML VIAL IV SCH ×3 (05:59→18:09)
[2019-08-07 07:02] LABS: Magnesium 2.6 mg/dL (1.6-2.3)
[2019-08-07 07:06] LABS: Potassium 4.7 mmol/L (3.5-5.1)
[2019-08-07 09:52] LABS: HCT 45.9 % (39.0-53.0); HGB 14.5 gm/dL (13.0-17.5); Hypochromasia Slight; MCH 28.8 pg (25.0-35.0); MCHC 31.5 g/dL (31.0-37.0); MCV 91.4 fL (80.0-100.0); Mean Platelet Volume 9.2; RBC 5.02 m/uL (4.30-5.90); RDW 13.8 % (11.5-15.5); WBC 15.3 k/uL (3.8-10.6)
[2019-08-07 09:58] LABS: Platelet Count 77 k/uL (150-450)
--- NOTE | 2019-08-07 09:59 | P.PN ---
Subjective This is a pleasant 79 years old male with past medical history of heart failure, COPD, dementia, schizophrenia. He presents because of dyspnea. Patient is poor historian and he is on BiPAP now and has difficulty given information however he has chest pain. Patient looks tachycardic with heart rate of 120 to 130, breathing rate is 32, blood pressure 110/75. He is saturating 92% on BiPAP with FiO2 of 60%. Labs reviewed showing worsening WBC from 4.8 up to 9.1K, platelet count 89. Hemoglobin 16. Troponin is elevated at 0.05 and 0.08, creatinine is elevated at 2.0, baseline is 1.2-1.3. Sodium 146. EKG showing sinus tachycardia at 140 wi th QTC of 540. Chest x-ray showing bilateral atelectasis however cannot exclude pneumonia. Patient was started on Solu-Medrol in the emergency room. Also he is on normal saline and 18 mL/h. He has decreased urine output, confirmed with the staff. We going to give him a bolus of 500 mL and follow-up creatinine level 08/07/2019 Patient still kind of confused. His BiPAP machine dependent since yesterday. Once they take the BiPAP of he desaturates. He does not looks oriented to the surroundings or follow commands appropriately however this also difficult to assess because of his respiratory status. However it looks calm not educated. His lactic acid came back to normal and we will lower his normal saline down to 14 mL/h. Continue with steroids, bronchodilators and Zithromax. Start him on clonidine patch for his tachycardia as his retrograde is around 120. Patient cannot take oral medication and most of his medications are given intravenously. His prognosis is poor given his advanced pulmonary disease and dementia. He has public guardian. Review of systems: Not applicable Active Medications Generic Name Dose Route Start Last Admin Trade Name Freq PRN Reason Stop Dose Admin Albuterol/Ipratropium 3 ml 08/06/19 12:00 08/07/19 07:28 Duoneb 0.5 Mg-3 Mg/3 Ml Soln INHALATION 3 ml RT-Q4H MALATHI Administration Aspirin 81 mg 08/07/19 09:45 Aspirin PO DAILY MALATHI Clonidine HCl 1 patch 08/06/19 22:15 08/06/19 23:01 Catapres-Tts 0.1mg Patch TRANSDERM 1 patch Q7D MALATHI Administration Famotidine 20 mg 08/06/19 12:15 08/06/19 16:38 Pepcid IV 20 mg DAILY MALATHI Administration Heparin Sodium (Porcine) 5,000 unit 08/06/19 00:00 08/07/19 08:43 Heparin SQ Not Given Q8HR MALATHI Sodium Chloride 1,000 mls @ 40 mls/hr 08/05/19 21:45 08/07/19 05:59 Saline 0.9% IV 80 mls/hr .Q24H MALATHI Administration Azithromycin 500 mg/ Sodium 250 mls @ 250 mls/hr 08/06/19 16:00 08/06/19 15:30 Chloride IVPB 250 mls/hr DAILY@1600 MALATHI Administration Lorazepam 0.5 mg 08/05/19 21:40 08/06/19 06:02 Ativan IV 0.5 mg Q6HR PRN Administration Anxiety Methylprednisolone Sodium Succinate 60 mg 08/06/19 00:00 08/07/19 05:59 Solu-Medrol IV 60 mg Q6HR MALATHI Administration Miscellaneous Information 1 each 08/06/19 14:44 Potassium Per Protocol MISCELLANE DAILY PRN Per Protocol Protocol Naloxone HCl 0.2 mg 08/05/19 21:40 Narcan IV Q2M PRN Opioid Reversal Objective - Vital Signs Vital signs: Vital Signs Temp 98.2 F 08/07/19 08:00 Pulse 121 H 08/07/19 08:00 Resp 32 H 08/07/19 08:00 BP 131/78 08/07/19 08:00 Pulse Ox 90 L 08/07/19 08:00 Intake & Output 08/06/19 08/07/19 08/07/19 18:59 06:59 18:59 Intake Total 800 Output Total 500 Balance -500 800 Weight 60.5 kg 52.5 kg Intake: Intake, IV Titration 800 Amount Sodium Chloride 0.9% 1, 800 000 ml @ 80 mls/hr IV . [id number] REPLACED BY [facility] Rx#:[id number] Output: Urine 500 Straight 200 Other: Voiding Method Diaper Diaper Diaper # Voids 2 - Exam -GENERAL: The patient is alert and awake however he does not look following commands appropriately. We cannot talk because the BiPAP mask is on his face. HEENT: Pupils are round and equally reacting to light. EOMI. No scleral icterus. No conjunctival pallor. Normocephalic, atraumatic. No pharyngeal erythema. No thyromegaly. CARDIOVASCULAR: S1 and S2 present. No murmurs, rubs, or gallops. -PULMONARY: Chest is clear to auscultation, bilateral scattered wheezing and decreased air entry -ABDOMEN: Soft, nontender, nondistended, normoactive bowel sounds. No palpable organomegaly. Scrotal swelling with no erythema or tenderness, mostly from edema MUSCULOSKELETAL: No joint swelling or deformity. -EXTREMITIES: No cyanosis, clubbing,. Mild leg edema NEUROLOGICAL: Gross neurological examination did not reveal any focal deficits. SKIN: No rashes. - Labs CBC & Chem 7: 08/06/19 06:36 08/07/19 06:27 Labs: Abnormal Lab Results - Last 24 Hours (Table) 08/06/19 08/06/19 08/06/19 Range/Units 09:48 10:41 14:07 ABG pH 7.49 H (7.35-7.45) ABG pCO2 34 L (35-45) mmHg ABG pO2 65 L (83-108) mmHg ABG Total CO2 26 H (19-24) mmol/L ABG O2 Saturation 93.3 L (94-97) % Plasma Lactic Acid Calos 3.7 H* 2.1 H* (0.7-2.0) mmol/L Magnesium (1.6-2.3) mg/dL 08/06/19 08/06/19 08/07/19 Range/Units 15:03 17:56 06:27 ABG pH (7.35-7.45) ABG pCO2 (35-45) mmHg ABG pO2 (83-108) mmHg ABG Total CO2 (19-24) mmol/L ABG O2 Saturation (94-97) % Plasma Lactic Acid Calos 2.3 H* (0.7-2.0) mmol/L Magnesium 2.7 H 2.6 H (1.6-2.3) mg/dL Microbiology - Last 24 Hours (Table) 08/05/19 18:30 Blood Culture - Preliminary Blood No Growth after 24 hours 08/06/19 08:31 Urine Culture - Preliminary Urine,Catheterized Assessment and Plan Assessment: Acute COPD exacerbation Acute hypoxemic respiratory failure Elevated troponin Acute kidney injury versus chronic kidney disease stage III. Mostly prerenal. Chronic congestive heart failure Dementia Schizophrenia thrombocytopenia Plan: This is a pleasant 79 years old male who presents with acute COPD exacerbation. Continue with steroids, bronchodilators, oxygen. continue with antibiotics. Call pulmonary consult. call cardiology consult . Continue with IV fluid. Check for influenza and sent sputum culture Labs and medication were reviewed.. Continue same treatment. Continue with symptomatic treatment. Resume home medication. Monitor lytes and vitals. DVT and GI prophylaxis. Further recommendations of the clinical course of the patient DVT prophylaxis: Subcutaneous heparin GI Prophylaxis: Pepcid Prognosis is guarded. Given his poor prognosis and advanced disease with multiple comorbidities including dementia and psychiatric history and others. Patient might benefit from hospice care. Patient has public guardian Discussed with staff
[2019-08-07 10:13] LABS: Calcium 8.2 mg/dL (8.4-10.2); Potassium 4.1 mmol/L (3.5-5.1)
[2019-08-07] MEDS: ASPIRIN 81 MG PO SCH (10:25)
[2019-08-07] MEDS: FAMOTIDINE 20 MG/2 ML VIAL IV SCH (10:25)
--- NOTE | 2019-08-07 10:57 | P.CRDCN ---
History of Present Illness History of present illness: This is a pleasant 79-year-old male past medical history significant for COPD, dementia, schizophrenia. The patient is nonverbal. Information is obtained from the nursing staff in the medical record. He presented to the hospital from adult foster long term secondary to poor oral intake and shortness of breath. He was apparently just discharged from former [facility] and they felt he required more care. He is currently maintained on BiPAP. We have been asked to see him in consultation secondary to elevated troponins noted on admission. He is seen and examined sitting in bed with BiPAP in place. He is nonverbal and appears comfortable. EKG reveals sinus tachycardia heart rate of 140 on admission with nonspecific abnormalities noted. Mild ST changes in the inferolateral leads. Chest x-ray reveals bilateral subsegmental atelectasis, ground glass opacities of the right mid and lower lung. Laboratory data reviewed, WBC 15.3, hemoglobin 14.5, platelets 77, sodium 148, potassium 4.1, creatinine 1.87, magnesium 2.6, lactic acid 2.3, pCO2 34 pH 7.49, troponin 0.051, 0.083 and 0.082, proBNP 1560. Unable to obtain accurate review of systems. Blood pressure 131/78 heart rate 121 afebrile maintaining oxygen saturation on high flow nonrebreather GENERAL: This is a 79-year-old occasion male in no apparent distress at the time of my examination. HEENT: Head is atraumatic, normocephalic. Pupils are equal, round. Sclerae anicteric. Conjunctivae are clear. Mucous membranes of the mouth are moist. Neck is supple. There is no jugular venous distention. No carotid bruit is heard. LUNGS: Scattered rhonchi, faint expiratory wheezes no rales. No chest wall tenderness is noted on palpation or with deep breathing. HEART: Regular rate and rhythm, tachycardia, without murmurs, rubs or gallops. S1 and S2 heard. ABDOMEN: Soft, nontender. Bowel sounds are heard. No organomegaly noted. EXTREMITIES: No evidence of peripheral edema and no calf tenderness noted. VASCULAR: Radial and dorsalis pedis pulses palpated, no evidence of clubbing. NEUROLOGIC: Patient is awake, alert and nonverbal. ASSESSMENT Acute hypoxic respiratory failure Elevated troponin secondary to renal function and sepsis not indicative of an acute coronary event. Acute exacerbation of COPD Dementia Schizophrenia Poor historian PLAN Would recommend maximizing his medical therapy at this time. Initiated on aspirin 81 mg daily, Toprol 25 mg daily and obtain 2-D echocardiogram and Doppler study to assess cardiac structure and function. Thank you kindly for this consultation. Nurse Practitioner note has been reviewed, I agree with a documented findings and plan of care. Patient was seen and examined. Past Medical History Past Medical History: Heart Failure, COPD, Dementia Additional Past Medical History / Comment(s): schizophrenia History of Any Multi-Drug Resistant Organisms: Unobtainable Past Surgical History: Unable to Obtain Past Anesthesia/Blood Transfusion Reactions: No Reported Reaction Past Psychological History: Schizophrenia Additional Psychological History / Comment(s): Pt is usually quite, keeps to himself. Smoking Status: Unknown if ever smoked Past Alcohol Use History: Unable to Obtain Additional Past Alcohol Use History / Comment(s): No record from [facility] at facility Past Drug Use History: Unable to Obtain - Past Family History Father Family Medical History: Unable to Obtain Additional Family Medical History / Comment(s): Patient is currently nonverbal Mother Family Medical History: Unable to Obtain Medications and Allergies Home Medications Medication Instructions Recorded Confirmed Type Ipratropium Nebulized [Atrovent 0.5 mg INHALATION TID 08/06/19 08/06/19 History Nebulized 0.2 MG/ML] Paliperidone Palmitate [Invega 78 mg IM Q28D 08/06/19 08/06/19 History Sustenna] predniSONE 0 mg PO DIRECTED 08/06/19 08/06/19 History Allergies Allergy/AdvReac Type Severity Reaction Status Date / Time ceftriaxone [From Rocephin] Allergy Unknown Verified 08/06/19 14:36 Penicillins Allergy Unknown Verified 08/06/19 14:36 Tetanus Vaccines and Toxoid Allergy Unknown Verified 08/06/19 14:36 Physical Exam Vitals: Vital Signs Temp Pulse Pulse Resp BP Pulse Ox 08/07/19 08:00 98.2 F 121 H 32 H 131/78 90 L 08/07/19 07:39 110 H 31 H 08/07/19 07:29 101 H 29 H 08/07/19 03:40 98.8 F 121 H 25 H 134/76 93 L 08/07/19 03:36 120 H 08/07/19 00:10 120 H 08/06/19 23:55 120 H 08/06/19 23:10 98.2 F 125 H 29 H 129/79 93 L 08/06/19 20:45 99.2 F 124 H 26 H 140/96 94 L 08/06/19 20:30 124 H 08/06/19 20:19 120 H 08/06/19 16:17 122 H 08/06/19 16:07 120 H 08/06/19 16:00 98.7 F 122 H 24 139/89 95 08/06/19 12:00 97.6 F 128 H 31 H 143/91 94 L 08/06/19 11:35 116 H 29 H 08/06/19 11:25 118 H 28 H Intake and Output 08/06/19 08/07/19 08/07/19 22:59 06:59 14:59 Intake Total 800 Balance 800 Intake: Intake, IV Titration 800 Amount Sodium Chloride 0.9% 1, 800 000 ml @ 80 mls/hr IV . [id number] [facility] Rx#:[id number] Other: Voiding Method Diaper Diaper Diaper # Voids 2 Weight 52.5 kg Results 08/07/19 09:16 08/07/19 09:16 CBC 08/07/19 Range/Units 09:16 WBC 15.3 H (3.8-10.6) k/uL RBC 5.02 (4.30-5.90) m/uL Hgb 14.5 (13.0-17.5) gm/dL Hct 45.9 (39.0-53.0) % Plt Count 77 L (150-450) k/uL Comprehensive Metabolic Panel 08/07/19 08/07/19 Range/Units 06:27 09:16 Sodium 148 H (137-145) mmol/L Potassium 4.7 4.1 (3.5-5.1) mmol/L Chloride 120 H (98-107) mmol/L Carbon Dioxide 16 L (22-30) mmol/L BUN 89 H (9-20) mg/dL Creatinine 1.87 H (0.66-1.25) mg/dL Glucose 120 H (74-99) mg/dL Calcium 8.2 L (8.4-10.2) mg/dL Current Medications Generic Name Dose Route Start Last Admin Trade Name Freq PRN Reason Stop Dose Admin Albuterol/Ipratropium 3 ml 08/06/19 12:00 08/07/19 07:28 Duoneb 0.5 Mg-3 Mg/3 Ml Soln INHALATION 3 ml RT-Q4H MALATHI Administration Aspirin 81 mg 08/07/19 09:45 08/07/19 10:25 Aspirin PO Not Given DAILY MALATHI Clonidine HCl 1 patch 08/06/19 22:15 08/06/19 23:01 Catapres-Tts 0.1mg Patch TRANSDERM 1 patch Q7D MALATHI Administration Famotidine 20 mg 08/06/19 12:15 08/07/19 10:25 Pepcid IV Not Given DAILY [facility] Heparin Sodium (Porcine) 5,000 unit 08/06/19 00:00 08/07/19 08:43 Heparin SQ Not Given Q8HR [facility] Sodium Chloride 1,000 mls @ 40 mls/hr 08/05/19 21:45 08/07/19 05:59 Saline 0.9% IV 80 mls/hr .Q24H MALATHI Administration Azithromycin 500 mg/ Sodium 250 mls @ 250 mls/hr 08/06/19 16:00 08/06/19 15:30 Chloride IVPB 250 mls/hr DAILY@1600 MALATHI Administration Lorazepam 0.5 mg 08/05/19 21:40 08/06/19 06:02 Ativan IV 0.5 mg Q6HR PRN Administration Anxiety Methylprednisolone Sodium Succinate 60 mg 08/06/19 00:00 08/07/19 05:59 Solu-Medrol IV 60 mg Q6HR MALATHI Administration Miscellaneous Information 1 each 08/06/19 14:44 Potassium Per Protocol MISCELLANE DAILY PRN Per Protocol Protocol Morphine Sulfate 1 mg 08/07/19 10:28 Morphine Sulfate (Inj) IVP Q4H PRN Pain/Discomfort Naloxone HCl 0.2 mg 08/05/19 21:40 Narcan IV Q2M PRN Opioid Reversal Intake and Output 08/06/19 08/07/19 08/07/19 22:59 06:59 14:59 Intake Total 800 Balance 800 Intake: Intake, IV Titration 800 Amount Sodium Chloride 0.9% 1, 800 000 ml @ 80 mls/hr IV . [id number] [facility] Rx#:[id number] Other: Voiding Method Diaper Diaper Diaper # Voids 2 Weight 52.5 kg 08/07/19 09:16 08/07/19 09:16
--- NOTE | 2019-08-07 11:45 | P.PN ---
Subjective Progress Note Date: 08/07/19 Principal diagnosis: Acute hypoxic respiratory failure related to acute exacerbation of COPD, stability of healthcare acquired pneumonia and acute exacerbation of congestive heart failure with unknown ejection fraction This is an 79-year-old gentleman who follows with Dr. Bella as his primary care physician. He has a history of chronic obstructive pulmonary disease, congestive heart failure, dementia. He was recently released from [facility] where they felt he was too sick to stay there and he was brought here to the emergency room yesterday. Chest x- ray revealed bilateral subsegmental atelectasis with superimposed groundglass right mid and lower lung airspace opacities. He was in significant respiratory distress but was refusing intubation in the emergency room. His legal guardian was contacted and he was made a DO NOT RESUSCITATE/DO NOT INTUBATE CODE STATUS. He was then placed on BiPAP and admitted to the selective care unit. He is seen there today in consultation. He is mainly nonverbal. Not answering any quest ions. He has been mainly BiPAP dependent since arrival. He is currently on 60% FiO2 at settings 14/7. Arterial blood gases revealed a PaO2 of 65, pCO2 34, pH 7.49. He is tachypneic in the 30s. He is tachycardic in the 130s. White count 9.1. Hemoglobin 16.0. Sodium 146. Potassium 3.2. BUN 71. Creatinine 2.0. Lactic acid 3.7. Troponin 0.082. He has been initiated on DuoNeb inhalations, IV Solu-Medrol. On 08/07/2019 patient seen in follow-up on selective care unit, this morning he was given a trial of nonrebreather mask and was taken off the BiPAP however he quickly became very dyspneic, upon my evaluation patient is minimally responsive, does not open eyes, follow command, he is tachycardic, hypoxic and satting only 84-87% on 100% nonrebreather, tachypneic respirations in the 30s, lung sounds are rhonchorous, with rails. he was immediately placed back on BiPAP support. He is afebrile, he was unable to provide a sputum sample for us, blood and urine cultures are pending, patient is currently on azithromycin for antibiotic coverage, he is on IV steroids, he was fluid resuscitated for lactic acidosis and sepsis related to suspected healthcare acquired pneumonia. On admi ssion his proBNP was also elevated at 1500 and troponins were mildly positive suggesting possibility of congestive heart failure with an unknown ejection fraction. Today's labs have been reviewed, showing white blood cell count of 15.3, hemoglobin of 14.5, his platelet count is down to 77, serum sodium is 148, potassium is 4.1, chloride is 120, CO2 is 16, BUN is 89, and creatinine is 1.87, his last lactic acid yesterday at 1999 was 1.2, influenza was not detected. Patient has a legal guardian and yesterday his CODE STATUS was discussed by the attending physician and status was changed to DO NOT RESUSCITATE DO NOT INTUBATE. However since admission patient does not seem to clinically improve, he remains BiPAP dependent, poorly responsive, congested, he is not able to clear secretions. The attending physician has spoken to the legal guardian this morning and the recommendation was for palliative care hospice at this time to which the guardian agreed. Objective - Vital Signs Vital signs: Vital Signs Temp 98.2 F 08/07/19 08:00 Pulse 119 H 08/07/19 11:19 Resp 29 H 08/07/19 11:19 BP 131/78 08/07/19 08:00 Pulse Ox 90 L 08/07/19 08:00 Intake & Output 08/06/19 08/07/19 08/07/19 18:59 06:59 18:59 Intake Total 800 Output Total 500 Balance -500 800 Weight 60.5 kg 52.5 kg Intake: Intake, IV Titration 800 Amount Sodium Chloride 0.9% 1, 800 000 ml @ 80 mls/hr IV . [id number] [facility] Rx#:[id number] Output: Urine 500 Straight 200 Other: Voiding Method Diaper Diaper Diaper # Voids 2 - Exam GENERAL EXAM: Somnolent, 79-year-old cachectic white male, currently on 100% nonrebreather, tachypneic, tachycardic, and the pulse ox is 84-87%, and patient was immediately placed back on BiPAP support HEAD: Normocephalic/atraumatic. EYES: Normal reaction of pupils, equal size. Conjunctiva pink, sclera white. NOSE: Clear with pink turbinates. THROAT: No erythema or exudates. NECK: No masses, no JVD, no thyroid enlargement, no adenopathy. CHEST: No chest wall deformity. Symmetrical expansion. LUNGS: Equal air entry with diffuse wheezes, and rhonchi CVS: Regular rate and rhythm, normal S1 and S2, no gallops, no murmurs, no rubs ABDOMEN: Soft, nontender. No hepatosplenomegaly, normal bowel sounds, no guarding or rigidity. EXTREMITIES: No clubbing, no edema, no cyanosis, 2+ pulses and upper and lower extremities. MUSCULOSKELETAL: Muscle strength and tone normal. SPINE: No scoliosis or deformity SKIN: No rashes CENTRAL NERVOUS SYSTEM: Poor the responsive, stuporous, 79-year-old cachectic white male was placed back on BiPAP support in view of hypoxemia despite the 100% nonrebreather mask. No focal deficits, tone is normal in all 4 extremities. - Labs CBC & Chem 7: 08/07/19 09:16 08/07/19 09:16 Labs: Abnormal Lab Results - Last 24 Hours (Table) 08/06/19 08/06/19 08/06/19 Range/Units 14:07 15:03 17:56 WBC (3.8-10.6) k/uL Plt Count (150-450) k/uL Sodium (137-145) mmol/L Chloride (98-107) mmol/L Carbon Dioxide (22-30) mmol/L BUN (9-20) mg/dL Creatinine (0.66-1.25) mg/dL Glucose (74-99) mg/dL Plasma Lactic Acid Calos 2.1 H* 2.3 H* (0.7-2.0) mmol/L Calcium (8.4-10.2) mg/dL Magnesium 2.7 H (1.6-2.3) mg/dL 08/07/19 08/07/19 08/07/19 Range/Units 06:27 09:16 09:16 WBC 15.3 H (3.8-10.6) k/uL Plt Count 77 L (150-450) k/uL Sodium 148 H (137-145) mmol/L Chloride 120 H (98-107) mmol/L Carbon Dioxide 16 L (22-30) mmol/L BUN 89 H (9-20) mg/dL Creatinine 1.87 H (0.66-1.25) mg/dL Glucose 120 H (74-99) mg/dL Plasma Lactic Acid Calos (0.7-2.0) mmol/L Calcium 8.2 L (8.4-10.2) mg/dL Magnesium 2.6 H (1.6-2.3) mg/dL Microbiology - Last 24 Hours (Table) 08/05/19 18:30 Blood Culture - Preliminary Blood No Growth after 24 hours 08/06/19 08:31 Urine Culture - Preliminary Urine,Catheterized Assessment and Plan Plan: #1 Acute hypoxic respiratory failure secondary to bilateral subsegmental atelectasis with lower lung airspace opacities possible healthcare acquired pneumonia and an acute exacerbation of chronic obstructive pulmonary disease. ProBNP was also elevated at 1500 suggesting possibility of acute exacerbation of CHF with an unknown ejection fraction #2 Recent admission to outside facility. #3 schizophrenia. #4 Dementia. #5 History of heart failure. Plan: Patient's clinical status has not improved, he remains BiPAP dependent, unable to clear secretions, still poorly responsive, he is tachypneic. His overall clinical outlook is guarded. Patient is DO NOT INTUBATE and DO NOT RESUSCITATE CODE STATUS. Patient's legal guardian has agreed to proceed with palliative care and hospice enrollment at this time which is reasonable given patient's comorbidities, dementia, and poor response to medical therapy. I performed a history & physical examination of the patient and discussed their management with my nurse practitioner, Deborah Oseguera. I reviewed the nurse practitioner's note and agree with the documented findings and plan of care. Lung sounds are rhonchorous. The findings and the impression was discussed with the patient. I attest to the documentation by the nurse practitioner. Time with Patient: Less than 30
[2019-08-07] MEDS: METOPROLOL SUCCINATE (ER) 25 MG TAB.ER.24H PO SCH (13:05)
[2019-08-07] MEDS: MORPHINE SULFATE 2 MG/ML SYRINGE IVP PRN ×2 (14:59→20:27)
[2019-08-07] MEDS: AZITHROMYCIN 500 MG in SODIUM CHLORIDE 0.9% 250 ML IVPB SCH (15:36)
[2019-08-07 17:03] LABS: Glucose,Whole Blood 110 mg/dL (75-99)
[2019-08-07 20:07] LABS: Glucose,Whole Blood 110 mg/dL (75-99)
[2019-08-08] MEDS: LORazepam 2 MG/ML INJ IV PRN (00:08)
[2019-08-08] MEDS: methylPREDNISolone SOD SUCCI 125 MG/2 ML VIAL IV SCH ×2 (00:08→06:36)
[2019-08-08] MEDS: HEPARIN SODIUM,PORCINE 5,000 UNIT/ML 1 ML VIAL SQ SCH ×2 (00:16→09:43)
[2019-08-08] MEDS: IPRATROPIUM-ALBUTEROL 3 ML NEB INHALATION SCH ×2 (03:53→09:09)
[2019-08-08 06:01] LABS: Glucose,Whole Blood 121 mg/dL (75-99)
[2019-08-08 06:22] LABS: MCH 28.8 pg (25.0-35.0); MCHC 31.7 g/dL (31.0-37.0); MCV 90.9 fL (80.0-100.0); RBC 4.51 m/uL (4.30-5.90); RDW 15.2 % (11.5-15.5); WBC 17.2 k/uL (3.8-10.6)
[2019-08-08 06:27] LABS: Platelet Count 87 k/uL (150-450)
[2019-08-08 06:32] LABS: Calcium 8.3 mg/dL (8.4-10.2); Potassium 3.9 mmol/L (3.5-5.1)
[2019-08-08] MEDS: METOPROLOL SUCCINATE (ER) 25 MG TAB.ER.24H PO SCH (09:01)
[2019-08-08] MEDS: ASPIRIN 81 MG PO SCH (09:01)
--- NOTE | 2019-08-08 09:25 | P.PN ---
Subjective This is a pleasant 79 years old male with past medical history of heart failure, COPD, dementia, schizophrenia. He presents because of dyspnea. Patient is poor historian and he is on BiPAP now and has difficulty given information however he has chest pain. Patient looks tachycardic with heart rate of 120 to 130, breathing rate is 32, blood pressure 110/75. He is saturating 92% on BiPAP with FiO2 of 60%. Labs reviewed showing worsening WBC from 4.8 up to 9.1K, platelet count 89. Hemoglobin 16. Troponin is elevated at 0.05 and 0.08, creatinine is elevated at 2.0, baseline is 1.2-1.3. Sodium 146. EKG showing sinus tachycardia at 140 wi th QTC of 540. Chest x-ray showing bilateral atelectasis however cannot exclude pneumonia. Patient was started on Solu-Medrol in the emergency room. Also he is on normal saline and 18 mL/h. He has decreased urine output, confirmed with the staff. We going to give him a bolus of 500 mL and follow-up creatinine level 08/07/2019 Patient still kind of confused. His BiPAP machine dependent since yesterday. Once they take the BiPAP of he desaturates. He does not looks oriented to the surroundings or follow commands appropriately however this also difficult to assess because of his respiratory status. However it looks calm not educated. His lactic acid came back to normal and we will lower his normal saline down to 14 mL/h. Continue with steroids, bronchodilators and Zithromax. Start him on clonidine patch for his tachycardia as his retrograde is around 120. Patient cannot take oral medication and most of his medications are given intravenously. His prognosis is poor given his advanced pulmonary disease and dementia. He has public guardian. 08/08/2019 Patient clinically the same. He is doing well and not improving. His persistently on BiPAP machine on and was taken off that he desaturates. He is not even taking his oral medication and he was switched to clonidine patch for better control of blood pressure and heart rate and decrease today to 0.2 mg. Patient is pending hospice care consult, recommended by pulmonary team and agreed on by his current legal guardian. Which I think is appropriate for him. Continue with morphine Objective - Vital Signs Vital signs: Vital Signs Temp 97.6 F 08/08/19 08:00 Pulse 120 H 08/08/19 09:09 Resp 30 H 08/08/19 08:00 BP 153/73 08/08/19 08:00 Pulse Ox 93 L 08/08/19 08:00 Intake & Output 08/07/19 08/08/19 08/08/19 18:59 06:59 18:59 Intake Total 40 Balance 40 Weight 56.1 kg Intake: Intake, IV Titration 40 Amount Sodium Chloride 0.9% 1, 40 000 ml @ 40 mls/hr IV . [facility] Rx#:[id number] Other: Voiding Method Diaper Diaper Diaper Incontinent # Voids 1 3 - Exam -GENERAL: The patient is alert and awake however he does not look following commands appropriately. We cannot talk because the BiPAP mask on his face because he desaturates is. HEENT: Pupils are round and equally reacting to light. EOMI. No scleral icterus. No conjunctival pallor. Normocephalic, atraumatic. No pharyngeal erythema. No thyromegaly. CARDIOVASCULAR: S1 and S2 present. No murmurs, rubs, or gallops. -PULMONARY: Chest is clear to auscultation, bilateral scattered wheezing and decreased air entry -ABDOMEN: Soft, nontender, nondistended, normoactive bowel sounds. No palpable organomegaly. Scrotal swelling with no erythema or tenderness, mostly from edema MUSCULOSKELETAL: No joint swelling or deformity. -EXTREMITIES: No cyanosis, clubbing,. Mild leg edema NEUROLOGICAL: Gross neurological examination did not reveal any focal deficits. SKIN: No rashes. - Labs CBC & Chem 7: 08/08/19 05:52 08/08/19 05:52 Labs: Abnormal Lab Results - Last 24 Hours (Table) 08/07/19 08/07/19 08/07/19 Range/Units 09:16 09:16 17:02 WBC 15.3 H (3.8-10.6) k/uL Plt Count 77 L (150-450) k/uL Sodium 148 H (137-145) mmol/L Chloride 120 H (98-107) mmol/L Carbon Dioxide 16 L (22-30) mmol/L BUN 89 H (9-20) mg/dL Creatinine 1.87 H (0.66-1.25) mg/dL Glucose 120 H (74-99) mg/dL POC Glucose (mg/dL) 110 H (75-99) mg/dL Calcium 8.2 L (8.4-10.2) mg/dL 08/07/19 08/08/19 08/08/19 Range/Units 20:06 05:52 05:52 WBC 17.2 H (3.8-10.6) k/uL Plt Count 87 L (150-450) k/uL Sodium 153 H (137-145) mmol/L Chloride 126 H (98-107) mmol/L Carbon Dioxide 19 L (22-30) mmol/L BUN 83 H (9-20) mg/dL Creatinine 1.48 H (0.66-1.25) mg/dL Glucose 123 H (74-99) mg/dL POC Glucose (mg/dL) 110 H (75-99) mg/dL Calcium 8.3 L (8.4-10.2) mg/dL 08/08/19 Range/Units 06:00 WBC (3.8-10.6) k/uL Plt Count (150-450) k/uL Sodium (137-145) mmol/L Chloride (98-107) mmol/L Carbon Dioxide (22-30) mmol/L BUN (9-20) mg/dL Creatinine (0.66-1.25) mg/dL Glucose (74-99) mg/dL POC Glucose (mg/dL) 121 H (75-99) mg/dL Calcium (8.4-10.2) mg/dL Microbiology - Last 24 Hours (Table) 08/05/19 18:30 Blood Culture - Preliminary Blood No Growth after 48 hours 08/06/19 08:31 Urine Culture - Final Urine,Catheterized 08/06/19 09:48 Blood Culture - Preliminary Blood No Growth after 24 hours Assessment and Plan Assessment: Acute COPD exacerbation. End stage Acute hypoxemic respiratory failure Elevated troponin Acute kidney injury versus chronic kidney disease stage III. Mostly prerenal. Chronic congestive heart failure Dementia Schizophrenia thrombocytopenia Plan: This is a pleasant 79 years old male who presents with acute end stage COPD exacerbation. Continue with steroids, bronchodilators, oxygen. He is persistently needing BiPAP machine. Continue with a clonidine patch. Call for hospice consult Labs and medication were reviewed.. Continue same treatment. Continue with symptomatic treatment. Resume home medication. Monitor lytes and vitals. DVT and GI prophylaxis. Further recommendations of the clinical course of the patient DVT prophylaxis: Subcutaneous heparin GI Prophylaxis: Pepcid Prognosis is guarded. Given his poor prognosis and advanced disease with multiple comorbidities including dementia and psychiatric history and others. Patient might benefit from hospice care. Patient has public guardian Discussed with staff
[2019-08-08] MEDS: FAMOTIDINE 20 MG/2 ML VIAL IV SCH (09:43)
[2019-08-08] MEDS: SODIUM CHLORIDE 0.9% 1,000 ML IV SCH (09:44)
[2019-08-08 12:23] VITALS: BP 144/74; PULSE 118; RESP 34; TEMP 98.3
[2019-08-08] MEDS ORDERED: AZITHROMYCIN 500 MG TAB PO SCH (16:00)
--- NOTE | 2019-08-11 06:07 | CDI ---
Documentation Clarification Form Date: 08/11/2019 5:47:25 AM From: Patricia Farr Phone: If you have a question about this query, please contact [facility] at [phone] between 8am and 5pm. Admit Date: 08/05/2019 9:48:00 PM Patient Name: José Sanchez Visit Number: [id number] Discharge Date: 08/08/2019 12:16:00 PM ATTENTION: The Clinical Documentation Specialists (CDI) and [facility] Coding Staff appreciate your assistance in clarifying documentation. Please respond to the clarification below the line at the bottom and electronically sign. The CDI & [facility] Coding staff will review the response and follow-up if needed. Please note: Queries are made part of the Legal Health Record. If you have any questions, please contact the author of this message via ITS. Dr. Barker Sheet The patient presented with the following possible HC pneumonia, esacerbation of COPD, lactic acidosis, respiratory failure, DNR and admit to hospice. PN 915 documents sepsis realted to HC pneumonia. Cardiac consult documents elevated troponins due to renal function and sepsis. Please clarify if patient had sepsis or was it ruled out. History/Risk Factors: possible pneumonia, lactic acidosis WBC UP to 15.3 and 17.2 Lactic acid: 3.7 2.1 Blood cultures: No growth Vitals signs on admission: 98.2F, 126 bpm, 20, 150/90, 92% 2L Other Clinical Indicators: elevated troponins, white count, lactic acid Treatment: fluid resuscitation for lactic acidosis, antibiotics, bronchodilators and steroids In your professional opinion, please clarify if these findings signify one of the following conditions, whether the condition is POA, and cause, if known: Condition Sepsis ruled out SIRS, without underlying infectious process Sepsis Severe Sepsis Septic Shock Other, please specify Unable to determine Present on Admission Yes No SIRS Criteria (2 or more of the following may indicate SIRS): -Temperature < 96.8F (36C) or > 101.0F (38.3C) -Heart Rate > 90 bpm -Respiratory Rate > 20 breaths/min or PaCO2 < 32 mmHg -White Blood Cell Count > 12,000 or < 4,000 cells/mm3 or > 10% bands -Lactate >2.0 mmol/L (>4.0 is equivalent to septic shock) pt main problem was advanced/end stage COPD rather than sepsis . MTDD
== END 2019-08-08 12:16 | disposition hospice, inpatient (51) | DRG 190 ==
LOC: EC 17:29 → 3SCARD 21:48
PROVIDERS: ADMIT Internal Medicine; ATTEND Internal Medicine
PROC: 5A09357 Assistance with Respiratory Ventilation, Less than 24 Consecutive Hours, Continuous Positive Airway Pressure (ICD-10-PCS; principal; 2019-08-05)
DX: J44.0 Chronic obstructive pulmonary disease with (acute) lower respiratory infection (principal); J18.9 Pneumonia, unspecified organism; J96.01 Acute respiratory failure with hypoxia; E87.2 Acidosis; J98.11 Atelectasis; N17.9 Acute kidney failure, unspecified; J44.1 Chronic obstructive pulmonary disease with (acute) exacerbation; D69.6 Thrombocytopenia, unspecified; F03.90 Unspecified dementia, unspecified severity, without behavioral disturbance, psychotic disturbance, mood disturbance, and anxiety; F20.9 Schizophrenia, unspecified; I50.9 Heart failure, unspecified; Y95 Nosocomial condition; Z66 Do not resuscitate; Z99.81 Dependence on supplemental oxygen; Z51.5 Encounter for palliative care; R74.8 Abnormal levels of other serum enzymes; N18.3 Chronic kidney disease, stage 3 (moderate); Z79.52 Long term (current) use of systemic steroids; Z79.899 Other long term (current) drug therapy; Z88.1 Allergy status to other antibiotic agents; Z88.0 Allergy status to penicillin; Z88.7 Allergy status to serum and vaccine
CPT/HCPCS: 36415; 36600; 71045; 80048; 80053; 81001; 82805; 83605; 83735; 83880; 84484; 85025; 85027; 85610; 85730; 87040; 87086; 87502; 93005; 94640; 94660; 96360; 96361; 96372; 96374; 96375; 96376; 99285

== ENCOUNTER 2019-08-08 11:57 | Inpatient (IN) | payer MEDICAID ==
[2019-08-08] MEDS ORDERED: ACETAMINOPHEN SUPPOSITORY 650 MG SUPP RECTAL PRN (12:01)
[2019-08-08] MEDS ORDERED: MORPHINE SULFATE 2 MG/ML SYRINGE IV PRN (12:01)
[2019-08-08] MEDS ORDERED: ONDANSETRON 4 MG/2 ML VIAL IVP PRN (12:01)
[2019-08-08] MEDS ORDERED: ATROPINE OPHTH SOLN 1% 5ML BTL SUBLINGUAL PRN (12:01)
[2019-08-08] MEDS ORDERED: LORazepam 2 MG/ML INJ IV PRN (12:01)
[2019-08-08] MEDS ORDERED: MORPHINE SULFATE (100 MG/2 ML) 100 MG in SODIUM CHLORIDE 0.9% 100 ML IV SCH (12:30)
[2019-08-08] MEDS ORDERED: SCOPOLAMINE 1.5MG/72HR PATCH TRANSDERM SCH (13:00)
[2019-08-08] MEDS ORDERED: MORPHINE CONC SOLN 10mg/0.5mL ORAL SYRG SL PRN (13:41)
[2019-08-08] MEDS ORDERED: MORPHINE SULFATE (100 MG/2 ML) 100 MG in SODIUM CHLORIDE 0.9% 100 ML MISCELLANE SCH (13:45)
[2019-08-08] MEDS ORDERED: LORazepam ORAL CONC 60 MG/30 ML BOTTLE SL PRN (14:15)
[2019-08-08 14:50] VITALS: RESP 35
[2019-08-08 15:11] VITALS: PULSE 111
--- NOTE | 2019-08-11 10:32 | P.HPIM ---
History of Present Illness Please consider this H and P and discharge summary Diagnoses: End stage COPD exacerbation. Admitted to hospice care Acute hypoxemic respiratory failure Elevated troponin Acute kidney injury versus chronic kidney disease stage III. Mostly prerenal. Chronic congestive heart failure Dementia Schizophrenia thrombocytopenia Hospital course: This is a pleasant 79 years old male with past medical history of heart failure, COPD, dementia, schizophrenia. He presents because of dyspnea. Patient is poor historian and he is on BiPAP now and has difficulty given information . Patient was admitted with acute COPD exacerbation, he became BiPAP dependent over several days with no improvement despite treatment with steroids, antibiotics and bronchodilators and oxygen . Patient has been evaluated by woodworking machine feeder, and wellness trainer team. Customer Solutions Architect recommended hospice care which looks appropriate given his advanced and end-stage COPD and other comorbidities . Discuss the case with his legal guardian who agreed patient to go for hospice. Hospice care was initiated for the patient. Eventually patient on 08/08/2019. Past Medical History Past Medical History: Heart Failure, COPD, Dementia Additional Past Medical History / Comment(s): schizophrenia History of Any Multi-Drug Resistant Organisms: Unobtainable Past Surgical History: Unable to Obtain Past Anesthesia/Blood Transfusion Reactions: No Reported Reaction Past Psychological History: Schizophrenia Additional Psychological History / Comment(s): Pt is usually quite, keeps to himself. Smoking Status: Unknown if ever smoked Past Alcohol Use History: Unable to Obtain Additional Past Alcohol Use History / Comment(s): No record from [facility] at facility Past Drug Use History: Unable to Obtain - Past Family History Father Family Medical History: Unable to Obtain Additional Family Medical History / Comment(s): Patient is currently nonverbal Mother Family Medical History: Unable to Obtain Medications and Allergies Home Medications Medication Instructions Recorded Confirmed Type Ipratropium Nebulized [Atrovent 0.5 mg INHALATION RT-TID 08/06/19 08/08/19 History Nebulized 0.2 MG/ML] Paliperidone Palmitate [Invega 78 mg IM Q28D 08/06/19 08/08/19 History Sustenna] predniSONE See Taper PO DIRECTED 08/06/19 08/08/19 History Allergies Allergy/AdvReac Type Severity Reaction Status Date / Time ceftriaxone [From Rocephin] Allergy Unknown Verified 08/08/19 12:47 Penicillins Allergy Unknown Verified 08/08/19 12:47 Tetanus Vaccines and Toxoid Allergy Unknown Verified 08/08/19 12:47 Physical Exam Vitals: Vital Signs Pulse Resp 08/08/19 15:07 111 H 08/08/19 14:49 106 H 35 H Intake and Output 08/08/19 08/08/19 08/08/19 06:59 14:59 22:59 Intake Total 0.544 4.233 Balance 0.544 4.233 Intake: Intake, IV Titration 0.544 4.233 Amount Morphine Sulfate (100 mg/ 0.544 4.233 2 ml) 100 mg In Sodium Chloride 0.9% 100 ml @ 1 MG/HR 1.02 mls/hr MISCELLANE .Q24H [facility] Rx#: [id number] Other: Voiding Method Incontinent # Voids 1 1 Weight 56.1 kg
== END 2019-08-08 21:21 | disposition expired | DRG 951 ==
LOC: 3SCARD 12:18
PROVIDERS: ADMIT Internal Medicine; ATTEND Internal Medicine
DX: Z51.5 Encounter for palliative care (principal); J96.01 Acute respiratory failure with hypoxia; J44.1 Chronic obstructive pulmonary disease with (acute) exacerbation; N17.9 Acute kidney failure, unspecified; F03.90 Unspecified dementia, unspecified severity, without behavioral disturbance, psychotic disturbance, mood disturbance, and anxiety; F20.9 Schizophrenia, unspecified; D69.6 Thrombocytopenia, unspecified; I50.9 Heart failure, unspecified; N18.3 Chronic kidney disease, stage 3 (moderate)